=== PATIENT | female | born 1965 | race Two or more races ===

== ENCOUNTER 2019-10-14 14:16 | Outpatient (CLI) | payer OTHER ==
[~2019-10-14] VITALS: Ht 152.4 cm; Wt 59.0 kg
== END 2019-10-14 18:35 | disposition home or self-care (01) ==
LOC: OFIC 805 14:16
PROVIDERS: ATTEND Otolaryngology Otology & Neurotology
DX: R42 Dizziness and giddiness (principal); E86.0 Dehydration; I95.1 Orthostatic hypotension